=== PATIENT | female | born 1955 | race Caucasian/White ===

== ENCOUNTER 2024-10-31 13:34 | Outpatient (CLI) | payer MEDICARE, OTHER | END 2024-10-31 13:35 | disposition home or self-care (01) | LOC: SCSMRI 13:34 | PROVIDERS: ATTEND Student in an Organized Health Care Education/Training Program | DX: M50.11 Cervical disc disorder with radiculopathy, high cervical region (principal); M50.121 Cervical disc disorder at C4-C5 level with radiculopathy; M50.122 Cervical disc disorder at C5-C6 level with radiculopathy; M50.123 Cervical disc disorder at C6-C7 level with radiculopathy; M47.22 Other spondylosis with radiculopathy, cervical region; M48.02 Spinal stenosis, cervical region; M48.03 Spinal stenosis, cervicothoracic region; R42 Dizziness and giddiness; R26.81 Unsteadiness on feet; I65.22 Occlusion and stenosis of left carotid artery | CPT/HCPCS: 36415; 70544; 72156; 82565 ==

== ENCOUNTER 2025-10-15 09:03 | Outpatient (CLI) | payer MEDICARE, OTHER | END 2025-10-15 09:04 | disposition home or self-care (01) | LOC: SCSBT 09:03 | PROVIDERS: ATTEND Internal Medicine Endocrinology, Diabetes & Metabolism | DX: M85.89 Other specified disorders of bone density and structure, multiple sites (principal); M81.0 Age-related osteoporosis without current pathological fracture | CPT/HCPCS: 77080 ==